=== PATIENT | male | born 1995 | race Caucasian/White ===

== ENCOUNTER 2018-05-03 21:42 | Emergency (ER) | payer OTHER ==
[2018-05-03 21:46] VITALS: BP 122/64
--- NOTE | 2018-05-03 22:20 | EDPHY ---
H & P Time Seen by Provider: 05/03/18 21:57 HPI/ROS: CHIEF COMPLAINT: Chin laceration HISTORY OF PRESENT ILLNESS: Patient is a 22-year-old male with no significant past medical history who was hit in the chin by a hockey stick while playing a game this evening. Denies any other associated injuries including no neck pain , headache, loss of consciousness, other injuries. He takes no prescribed medication. Denies any dental pain or trouble swallowing. ROS As detailed in HPI Smoking Status: Never smoked Physical Exam: General: Alert and oriented. Nontoxic appearing. No acute distress HEENT: Pupils PERRLA. No oral lesions. Cardiopulmonary: Regular rate and rhythm. No lower extremity edema Skin: [place] warm and dry. 1 cm laceration to the left lateral chin Muscle skeletal: Moving all 4 extremities. Equal strength in upper extremities and lower extremities. Ambulatory. Constitutional: Initial Vital Signs Temperature (C) 37.1 C 05/03/18 21:43 Heart Rate 84 05/03/18 21:43 Respiratory Rate 16 05/03/18 21:43 Blood Pressure 122/64 H 05/03/18 21:43 O2 Sat (%) 95 05/03/18 21:43 O2 Delivery Mode Room Air Allergies/Adverse Reactions: Penicillins Allergy (Verified 05/03/18 21:46) Home Medications: Medication Instructions Recorded NK [No Known Home Meds] 05/03/18 Medical Decision Making Procedures: Procedure: Laceration repair. Verbal consent was obtained from the patient. The 1 cm laceration on the chin was anesthetized in the usual fashion. The wound was irrigated, draped and explored to its base. There were no deep structures involved. The wound was repaired with 6-0 nylon The wound repair was well approximated with 2 simple sutures. The procedure was performed by myself. Departure - Departure Disposition: Home, Routine, Self-Care Clinical Impression: Chin laceration Condition: Good Instructions: Laceration (ED) Additional Instructions: Follow-up in 5 days for suture removal. Return sooner to the ER if he develops any signs of infection or other worrisome symptoms. Referrals: NONE *PRIMARY CARE P,. [Primary Care Provider] - As per Instructions [facility],. [Clinic] - As per Instructions
== END 2018-05-03 22:28 | disposition home or self-care (01) ==
PROC: 0HQ1XZZ Repair Face Skin, External Approach (ICD-10-PCS; principal; 2018-05-03)
DX: S01.81XA Laceration without foreign body of other part of head, initial encounter (principal); W21.211A Struck by field hockey stick, initial encounter; Y92.9 Unspecified place or not applicable; Y99.9 Unspecified external cause status; Y93.89 Activity, other specified